=== PATIENT | female | born 1940 | race Caucasian/White ===

== ENCOUNTER 2018-05-09 16:34 | Outpatient (CLI) | payer MEDICARE | END 2018-05-09 16:35 | disposition home or self-care (01) | LOC: BICRAD 16:34 | PROVIDERS: ATTEND Internal Medicine | DX: R07.9 Chest pain, unspecified (principal); K44.9 Diaphragmatic hernia without obstruction or gangrene | CPT/HCPCS: 71046 ==

== ENCOUNTER 2019-04-01 16:54 | Observation (INO) | payer MEDICARE ==
[~2019-04-01 16:54] MED LIST: ISOVUE-370 76%-LOCM 1 ML ONE; Iopamidol 370 76% 50 ML VIAL FS ONE
[2019-04-01 17:55] LABS: #Basophils 0.1 thou/uL (0.0-0.2); #Eosinphils 0.6 thou/uL (0.0-0.7); #Lymphocytes 2.2 thou/uL (1.20-3.40); #Monocytes 0.7 thou/uL (0.11-0.59); #Neutrophils 5.5 thou/uL (1.40-6.50); %Basophils 0.8 % (0.0-1.0); %Eosinophils 6.6 % (0.0-10.0); %Lymphocytes 23.7 % (21.0-51.0); %Monocytes 7.8 % (0.0-10.0); Mean Corpuscular HGB CONC 32.6 g/dL (32.0-36.0); Mean Corpuscular Hemoglobin 29.7 pg (27.0-31.0); Mean Corpuscular Volume 91.1 fL (78.0-98.0); Mean Platelet Volume 6.8 fL (7.4-10.4); Platelet Count 271 thou/uL (130-400); RBC Distribution Width 13.8 % (11.5-14.5); Red Blood Cell (RBC) Count 4.39 mill/uL (4.20-5.40); White Blood Cell (WBC) Count 9.1 thou/uL (4.8-10.8)
[2019-04-01 18:01] LABS: PTT 25.3 SEC (22.9-36.1); Prothrombin Time 13.1 SEC (12.0-14.7)
[2019-04-01 18:15] LABS: ALT (SGPT) 18 U/L (8-55); AST (SGOT) 25 U/L (5-34); Albumin 4.3 g/dL (3.4-4.8); Alkaline Phosphatase 76 U/L (40-150); Anion Gap 12 mmol/L (10-20); BUN (Urea Nitrogen) 12 mg/dL (9.8-20.1); Bilirubin, Total 0.5 mg/dL (0.2-1.2); Calc. Creatinine Clearance 0 mL/min (70-130); Calcium 9.9 mg/dL (7.8-10.44); Carbon Dioxide 25 mmol/L (23-31); Chloride 106 mmol/L (98-107); Estimated GFR-MDRD 66; Globulin 2.6 g/dL (2.4-3.5); Glucose 97 mg/dL (83-110); Potassium 4.4 mmol/L (3.5-5.1); Protein, Total 6.9 g/dL (6.0-8.3); Sodium 139 mmol/L (136-145)
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
[2019-04-01] MEDS ORDERED: traMADol HCl 50 MG TAB PO PRN (22:34)
[2019-04-01] MEDS ORDERED: Sodium Chloride 0.9% 1,000 ML IV SCH (22:34)
[2019-04-01] MEDS ORDERED: Ondansetron ODT 4 MG TAB PO PRN (22:34)
[2019-04-01] MEDS ORDERED: Ondansetron ODT 4 MG TAB SL PRN (22:34)
[2019-04-01] MEDS ORDERED: Dextrose 50% Abboject 50 ML SYRINGE SLOW IVP PRN (22:34)
[2019-04-01] MEDS ORDERED: Ibuprofen 800 MG TAB PO PRN (22:34)
[2019-04-01] MEDS ORDERED: Dextrose 5% in Water 1,000 ML IV PRN (22:34)
[2019-04-01] MEDS ORDERED: hydrALAZINE 20 MG/ML VIAL SLOW IVP PRN (22:34)
[2019-04-01] MEDS ORDERED: Ondansetron PF 4 MG/2 ML Vial IVP PRN ×2 (22:34)
[2019-04-01] MEDS ORDERED: Cyclobenzaprine 10 MG TAB PO PRN (22:34)
[2019-04-01] MEDS: Acetaminophen 500 MG TAB PO SCH (23:01)
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
[2019-04-02 00:22] VITALS: BMI 25.9
[2019-04-02] MEDS: Acetaminophen 500 MG TAB PO SCH ×4 (05:03→23:03)
[2019-04-02 05:09] LABS: #Basophils 0.1 thou/uL (0.0-0.2); #Eosinphils 0.7 thou/uL (0.0-0.7); #Lymphocytes 1.9 thou/uL (1.20-3.40); #Monocytes 0.8 thou/uL (0.11-0.59); #Neutrophils 5.8 thou/uL (1.40-6.50); %Basophils 0.8 % (0.0-1.0); %Eosinophils 7.1 % (0.0-10.0); %Lymphocytes 20.7 % (21.0-51.0); %Monocytes 8.2 % (0.0-10.0); %Neutrophils 63.3 % (42.0-75.0); Hemoglobin 11.6 g/dL (12.0-16.0); Mean Corpuscular Hemoglobin 29.9 pg (27.0-31.0); Mean Corpuscular Volume 90.7 fL (78.0-98.0); Mean Platelet Volume 6.6 fL (7.4-10.4); Platelet Count 232 thou/uL (130-400); RBC Distribution Width 13.7 % (11.5-14.5); Red Blood Cell (RBC) Count 3.89 mill/uL (4.20-5.40); White Blood Cell (WBC) Count 9.2 thou/uL (4.8-10.8)
[2019-04-02 05:26] LABS: Anion Gap 8 mmol/L (10-20); BUN (Urea Nitrogen) 10 mg/dL (9.8-20.1); Calc. Creatinine Clearance 67 mL/min (70-130); Calcium 8.9 mg/dL (7.8-10.44); Carbon Dioxide 26 mmol/L (23-31); Chloride 108 mmol/L (98-107); Estimated GFR-MDRD 73; Glucose 117 mg/dL (83-110); Potassium 4.1 mmol/L (3.5-5.1); Sodium 138 mmol/L (136-145)
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
[2019-04-02] MEDS: Gabapentin 300 MG CAP PO SCH ×2 (08:38→21:06)
[2019-04-02] MEDS: traMADol HCl 50 MG TAB PO PRN ×2 (09:55→16:13)
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
[2019-04-02] MEDS ORDERED: traMADol HCl 50 MG TAB PO PRN (17:00)
[2019-04-02] MEDS ORDERED: traMADol HCl 50 MG TAB PO SCH (18:00)
[2019-04-02] MEDS: Ibuprofen 600 MG TAB PO SCH (21:06)
[2019-04-02] MEDS: traMADol HCl 50 MG TAB PO SCH (21:07)
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
[2019-04-03] MEDS: traMADol HCl 50 MG TAB PO SCH ×2 (04:58→10:17)
[2019-04-03] MEDS: Ibuprofen 600 MG TAB PO SCH ×2 (05:00→14:25)
[2019-04-03] MEDS: Acetaminophen 500 MG TAB PO SCH ×2 (05:00→12:34)
[2019-04-03] MEDS: Gabapentin 300 MG CAP PO SCH (08:44)
[2019-04-03 10:50] VITALS: BP 107/66; TEMP 97.4
--- NOTE | 2019-04-03 15:45 | EKG ---
Test Reason : Blood Pressure : / mmHG Vent. Rate : 080 BPM Atrial Rate : 080 BPM P-R Int : 144 ms QRS Dur : 074 ms QT Int : 400 ms P-R-T Axes : 032 -04 011 degrees QTc Int : 461 ms Normal sinus rhythm Normal ECG Confirmed by ANÍBAL MANLEY MD ([id number]), news video editor NIKKO RUBIO ([id number]) on 04/03/2019 3:45:06 PM Referred By: Confirmed By:ANÍBAL MANLEY MD
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
== END 2019-04-03 14:50 | disposition home or self-care (01) ==
LOC: ERS 16:54 → SURG A 22:33 → INTOOBSV 22:33
PROVIDERS: ADMIT Surgery; ATTEND Surgery
DX: S22.21XA Fracture of manubrium, initial encounter for closed fracture (principal); S22.32XA Fracture of one rib, left side, initial encounter for closed fracture; S22.31XA Fracture of one rib, right side, initial encounter for closed fracture; S22.081A Stable burst fracture of T11-T12 vertebra, initial encounter for closed fracture; S32.021A Stable burst fracture of second lumbar vertebra, initial encounter for closed fracture; S32.031A Stable burst fracture of third lumbar vertebra, initial encounter for closed fracture; S32.041A Stable burst fracture of fourth lumbar vertebra, initial encounter for closed fracture; K44.9 Diaphragmatic hernia without obstruction or gangrene; K43.9 Ventral hernia without obstruction or gangrene; Q61.02 Congenital multiple renal cysts; J90 Pleural effusion, not elsewhere classified; I48.91 Unspecified atrial fibrillation; J45.909 Unspecified asthma, uncomplicated; Z79.02 Long term (current) use of antithrombotics/antiplatelets; Z79.2 Long term (current) use of antibiotics; Z79.82 Long term (current) use of aspirin; Z79.899 Other long term (current) drug therapy; Z88.0 Allergy status to penicillin; Z88.8 Allergy status to other drugs, medicaments and biological substances; Z91.040 Latex allergy status; Z96.642 Presence of left artificial hip joint; V89.2XXA Person injured in unspecified motor-vehicle accident, traffic, initial encounter
CPT/HCPCS: 70450; 71045; 71260; 72125; 74177; 80048; 80053; 85025 ×2; 85610; 85730; 93005; 96360; 96361; 97139 ×2; 99285; G0378 ×4; 36415; Q9966; Q9967

== ENCOUNTER 2019-04-15 13:12 | Outpatient (CLI) | payer MEDICARE ==
--- NOTE | 2019-04-15 13:58 | RAD ---
EXAM: Two views chest PROVIDED CLINICAL HISTORY: Fracture right rib. COMPARISON: 04/02/2019 FINDINGS: There is a large hiatal hernia with distention of the stomach, and the majority of the stomach appear s to be above the level of the hemidiaphragms and overlying the left lung base. There is volume loss present at the left lung base. There is linear scar versus atelectasis in the right midlung zone . The cardiac silhouette is magnified by projection but does appear mildly enlarged. The pulmonary vasc ulature is within normal limits. Metallic device overlying the left chest on the prior study has been removed. Multilevel degenerative changes in the lower thoracic spine as well as upper lumbar spine with compre ssion fracture involving the T12 vertebral body as well as upper lumbar vertebral bodies better visualized on CT abdomen and pelvis on 04/01/2019. No obvious rib fracture is seen on this exam. IMPRESSION: 1. Large hiatal hernia with volume loss present at each lung base. 2. Compression fractures lower thoracic and upper lumbar spine also seen on CT abdomen and pelvis on 04/01/2019. 3. No definite rib fracture is visualized on this exam.
--- NOTE | 2019-04-15 15:24 | RAD ---
LEFT HIP TWO VIEWS: HISTORY: Left hip pain. FINDINGS: There are postop changes of total knee arthroplasty in good position and alignment. No fracture disl ocation or bony destruction is seen. No perihardware lucency is identified to suggest loosening. IMPRESSION: No acute process. POS: TPC
== END 2019-04-15 13:13 | disposition home or self-care (01) ==
LOC: RAD 13:12
PROVIDERS: ATTEND Physician Assistant
DX: S22.31XD Fracture of one rib, right side, subsequent encounter for fracture with routine healing (principal); M25.552 Pain in left hip; K44.9 Diaphragmatic hernia without obstruction or gangrene; S22.9XXA Fracture of bony thorax, part unspecified, initial encounter for closed fracture; S32.009A Unspecified fracture of unspecified lumbar vertebra, initial encounter for closed fracture
CPT/HCPCS: 71046

== ENCOUNTER 2019-04-22 09:16 | Outpatient (CLI) | payer MEDICARE ==
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
--- NOTE | 2019-04-22 12:48 | BD ---
DEXA BONE DENSITOMETRY: (Dual energy x-ray absorptiometry) DATE: 04/22/2019 HISTORY: 79-year old white female for age-related, post-menopausal, osteoporosis screening. weight: 152 lbs height: 65 in. age of menopause: 59 COMPARISON: None available. FINDINGS: The bone mineral density (BMD) is given in grams per square centimeter (g/cm2): LUMBAR SPINE: BMD (g/cm^2) T score Z score L1: 0.935 -0.5 1.8 L2: 1.173 1.3 3.9 L3: 1.423 3.1 5.8 L4: 0.923 -1.3 1.5 Total: 1.088 0.4 2.9 HIP: BMD (g/cm^2) T score Z score Femoral neck: 0.739 -1.0 1.2 Total: 0.845 -0.8 1.2 IMPRESSION: 1.) The mean bone mineral density of the lumbar spine is normal. However, there are extensive sclerot ic degenerative changes which elevate the BMD, and therefore could result in underestimation of fracture risk.. 2) The bone mineral density of the femoral neck is normal. Fracture risk is not increased.
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
== END 2019-04-22 09:17 | disposition home or self-care (01) ==
LOC: BICMAMMO 09:16
PROVIDERS: ATTEND Internal Medicine
DX: Z13.820 Encounter for screening for osteoporosis (principal); Z78.0 Asymptomatic menopausal state; N63.23 Unspecified lump in the left breast, lower outer quadrant; Z80.3 Family history of malignant neoplasm of breast; Z85.828 Personal history of other malignant neoplasm of skin; Z91.89 Other specified personal risk factors, not elsewhere classified; R92.1 Mammographic calcification found on diagnostic imaging of breast
CPT/HCPCS: 76642; 77066; 77080; G0279

== ENCOUNTER 2019-04-23 13:09 | Outpatient (CLI) | payer MEDICARE ==
--- NOTE | 2019-04-23 13:38 | RAD ---
EXAM: XR Lumbar Spine 2 Or 3 View PROVIDED CLINICAL HISTORY: Lumbar compression fracture. Follow-up evaluation. COMPARISON: CT abdomen and pelvis on 04/01/2019. FINDINGS: There is left convex scoliosis of the thoracolumbar spine. There are 5 nonrib-bearing lumbar-type lisandra tebral bodies. Burst fractures involving the T12, L2, L3, and L4 vertebral bodies are again seen. The degree of height loss is similar to the prior CT examination with degree of height loss much grea ter involving the T12 and L4 vertebral bodies with the degree of height loss slightly greater than approximately 75%. No new compression fracture is seen. Laminectomy defect is again seen at the L4-5 level. Facet hypertrophic changes are seen at multiple levels. There is exaggerated kyphosis of the thoracolumbar spine centered at the thoracolumbar junction. Vascular calcifications are seen in the abdominal aorta and involving the iliac arteries. Prominent c alcifications are seen in the region of the body and tail of the pancreas also seen on prior CT exam which may be related to sequela of prior pancreatitis. Metallic densities overlie the pelvis rel ated to mesh material. Postsurgical changes left hip are partially imaged related to left total hip prosthesis. 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 IMPRESSION: 1. Left convex scoliosis lumbar spine with burst fractures involving the T12, L2, L3, and L4 vertebra l bodies. The degree of height loss is similar to prior CT exam. 2. Postsurgical and degenerative changes lumbar spine.
== END 2019-04-23 13:10 | disposition home or self-care (01) ==
LOC: TBSIIMAG 13:09
PROVIDERS: ATTEND Neurological Surgery
DX: M48.56XD Collapsed vertebra, not elsewhere classified, lumbar region, subsequent encounter for fracture with routine healing (principal); M41.9 Scoliosis, unspecified; M47.816 Spondylosis without myelopathy or radiculopathy, lumbar region; S22.081A Stable burst fracture of T11-T12 vertebra, initial encounter for closed fracture; S32.021A Stable burst fracture of second lumbar vertebra, initial encounter for closed fracture; S32.032A Unstable burst fracture of third lumbar vertebra, initial encounter for closed fracture; S32.04 Fracture of fourth lumbar vertebra; Z98.890 Other specified postprocedural states
CPT/HCPCS: 72100

== ENCOUNTER 2019-09-27 09:35 | Outpatient (CLI) | payer MEDICARE ==
--- NOTE | 2019-09-27 14:42 | RAD ---
UPPER GI: Date: 09/27/2019 HISTORY: Hiatal hernia, gastroesophageal reflux disease. COMPARISON: None. FINDINGS: The patient was brought to the fluoroscopy suite. A trailer steerer radiograph of the abdomen demonstrates mild levoscoliosis of the lumbar spine with laminectomy change. Ventral hernia repair tacks are noted ove r the abdomen. Left hip arthroplasty. There are calcifications over the expected location of the pancreas. Compression deformities of T12, L2, L3, and L4. The patient was initially given gas-forming crystals. The patient tolerated this well. Next, the reg ent was given thick liquid barium. Primary and secondary peristalsis was normal over the upper 1/3 es ophagus. There is presbyesophagus with foreshortening with numerous tertiary contractions. There is p oor peristalsis of the mid and distal 1/3 esophagus. Large paraesophageal hernia with majority of the gastric volume within the thoracic cavity with organoaxial volvulus. Proximal small bowel rotation is normal. IMPRESSION: 1. Large paraesophageal hernia with a majority of the gastric contents within the left thoracic cavi ty with organoaxial volvulus without obstruction. 2. Calcifications projecting over the left upper quadrant of the abdomen, likely overlying the pancr eatic shadow and may be sequelae of chronic pancreatitis. 3. Presbyesophagus with poor contractility and numerous tertiary contractions of the distal 1/3 of e sophagus due to chronic reflux. POS: OFF
== END 2019-09-27 09:36 | disposition home or self-care (01) ==
LOC: RAD 09:35
PROVIDERS: ATTEND Internal Medicine Gastroenterology
DX: K44.9 Diaphragmatic hernia without obstruction or gangrene (principal); K21.9 Gastro-esophageal reflux disease without esophagitis; K43.9 Ventral hernia without obstruction or gangrene; Z83.71 Family history of colonic polyps; R19.09 Other intra-abdominal and pelvic swelling, mass and lump; K22.8 Other specified diseases of esophagus
CPT/HCPCS: 74246

== ENCOUNTER 2019-10-01 10:09 | Outpatient (CLI) | payer MEDICARE ==
--- NOTE | 2019-10-01 10:24 | RAD ---
EXAM: Chest PA and lateral: HISTORY: Dyspnea COMPARISON: 04/15/2019 FINDINGS: There is a large fixed diaphragmatic hernia which extends in the left lung base. There is associated left basilar atelectasis. These findings appear stable. Mild stranding in the mid left lung is stable. No acute infiltrate or vascular congestion. Degenerative spine changes with compression deformities in the upper lumbar vertebra appear stable. IMPRESSION: Large fixed diaphragmatic hernia again noted. No acute interval change apparent.
== END 2019-10-01 10:10 | disposition home or self-care (01) ==
LOC: RAD 10:09
PROVIDERS: ATTEND Internal Medicine Pulmonary Disease
DX: R06.00 Dyspnea, unspecified (principal); K44.9 Diaphragmatic hernia without obstruction or gangrene
CPT/HCPCS: 71046

== ENCOUNTER 2019-11-12 14:13 | Outpatient (CLI) | payer MEDICARE ==
--- NOTE | 2019-11-12 14:38 | RAD ---
EXAM: Chest PA and lateral: HISTORY: Dyspnea COMPARISON: 10/01/2019 FINDINGS: Heart: Normal cardiac silhouette Aorta: Atherosclerosis Pulmonary vessels: Normal Costophrenic angles: Costophrenic angles are clear. Lungs: Linear density in the right midlung and left lung base may represent subsegmental atelectasis or scar. Previously noted hiatal hernia is less evident on the current examination. Pneumothorax: No pneumothorax Osseous structures: Chronic compression fracture of the upper lumbar spine. IMPRESSION: 1. Atherosclerosis. 2. Chronic upper lumbar spine compression fractures. 3. Previous noted hiatal hernia is less evident. 4. Linear densities in the right midlung in the left lung base may represent subsegmental atelectasis or scar.
== END 2019-11-12 14:14 | disposition home or self-care (01) ==
LOC: RAD 14:13
PROVIDERS: ATTEND Internal Medicine Pulmonary Disease
DX: R06.00 Dyspnea, unspecified (principal); I70.0 Atherosclerosis of aorta; M48.56XD Collapsed vertebra, not elsewhere classified, lumbar region, subsequent encounter for fracture with routine healing; J98.4 Other disorders of lung; K44.9 Diaphragmatic hernia without obstruction or gangrene
CPT/HCPCS: 71046

== ENCOUNTER 2020-02-19 10:06 | Outpatient (CLI) | payer MEDICARE ==
--- NOTE | 2020-02-19 11:06 | MMO ---
Bilateral MAMMO Bilat Diag [facility]. CLINICAL HISTORY: Patient is 79 years old and is seen for diagnostic exam. The patient has the following family history of breast cancer: paternal aunt. The patient has a history of Skin cancer at age 71. The patient has a history of left Excisional Biopsy in November, - benign and bilateral Excisional Biopsy in - benign. VIEWS: The views performed were: bilateral craniocaudal with tomosynthesis; bilateral mediolateral oblique with tomosynthesis; and bilateral mediolateral with tomosynthesis. FILMS COMPARED: The present examination has been compared to prior imaging studies performed at [facility] on 08/31/2016, 04/22/2019 and 02/19/2020. This study has been interpreted with the assistance of computer-aided detection. MAMMOGRAM FINDINGS: The breasts are heterogeneously dense, which could obscure a lesion on mammography. Benign calcifications are noted bilaterally. The previously noted mass at 6:00 left breast is not seen on mammo or US. There are no suspicious masses, suspicious calcifications, or new areas of architectural distortion. IMPRESSION: THERE IS NO MAMMOGRAPHIC EVIDENCE OF MALIGNANCY. A ROUTINE FOLLOW-UP MAMMOGRAM IN 1 YEAR IS RECOMMENDED. THE RESULTS OF THIS EXAM WERE SENT TO THE PATIENT. ACR BI-RADS Category 2 - Benign finding MAMMOGRAPHY NOTE: 1. A negative mammogram report should not delay a biopsy if a dominant of clinically suspicious mass is present. 2. Approximately 10% to 15% of breast cancers are not detected by mammography. 3. Adenosis and dense breasts may obscure an underlying neoplasm. Reported by: ASHLI SARGENT MD Electonically Signed: [id number]
--- NOTE | 2020-02-19 11:50 | ULT ---
LEFT BREAST ULTRASOUND: Date: 02/19/2020 HISTORY: Follow-up left breast mass/hematoma from 04/22/2019. FINDINGS: Correlation is made with mammograms of today. Sonographic evaluation of the 6 o'clock position of the left breast demonstrates no abnormality. The previously noted mass is no longer seen. IMPRESSION: BI-RADS Category 2 - Benign findings. Return to annual mammographic screening.
== END 2020-02-19 10:07 | disposition home or self-care (01) ==
LOC: BICMAMMO 10:06
PROVIDERS: ATTEND Internal Medicine
DX: R92.2 Inconclusive mammogram (principal); N63.20 Unspecified lump in the left breast, unspecified quadrant
CPT/HCPCS: 76642; 77066; G0279

== ENCOUNTER 2020-11-11 12:07 | Outpatient (CLI) | payer MEDICARE | END 2020-11-11 12:08 | disposition home or self-care (01) | LOC: BICRAD 12:07 | PROVIDERS: ATTEND Internal Medicine Critical Care Medicine | DX: R06.00 Dyspnea, unspecified (principal) | CPT/HCPCS: 71046 ==

== ENCOUNTER 2021-07-08 12:15 | Outpatient (CLI) | payer MEDICARE | END 2021-07-08 12:16 | disposition home or self-care (01) | LOC: BICRAD 12:15 | PROVIDERS: ATTEND Internal Medicine | DX: M17.0 Bilateral primary osteoarthritis of knee (principal) ==

== ENCOUNTER 2021-08-23 10:55 | Emergency (ER) | payer MEDICARE ==
[2021-08-23 15:02] LABS: SARS-CoV-2 PCR by NAA DETECTED (NotDetected)
== END 2021-08-23 11:50 | disposition home or self-care (01) ==
LOC: ERS 10:55
DX: U07.1 COVID-19 (principal); J45.909 Unspecified asthma, uncomplicated; I48.91 Unspecified atrial fibrillation; Z79.82 Long term (current) use of aspirin; Z79.899 Other long term (current) drug therapy
CPT/HCPCS: U0003; U0005; 99283

== ENCOUNTER 2021-12-10 11:29 | Outpatient (CLI) | payer OTHER, MEDICARE ==
[2021-12-10 22:17] LABS: SARS-CoV-2 PCR by NAA Not Detected (NotDetected)
== END 2021-12-10 11:30 | disposition home or self-care (01) ==
LOC: LABBT 11:29
PROVIDERS: ATTEND Internal Medicine Gastroenterology
DX: R13.10 Dysphagia, unspecified (principal); Z20.822 Contact with and (suspected) exposure to COVID-19
CPT/HCPCS: U0003; U0005

== ENCOUNTER 2022-03-15 12:31 | Emergency (ER) | payer MEDICARE ==
[2022-03-15] MEDS ORDERED: Boostrix 0.5 ML (Tdap) VIAL ONE (13:23)
== END 2022-03-15 14:12 | disposition home or self-care (01) ==
LOC: ERS 12:31
DX: S91.331A Puncture wound without foreign body, right foot, initial encounter (principal); J45.909 Unspecified asthma, uncomplicated; K46.9 Unspecified abdominal hernia without obstruction or gangrene; I48.91 Unspecified atrial fibrillation; W45.0XXA Nail entering through skin, initial encounter; Z23 Encounter for immunization; Z85.828 Personal history of other malignant neoplasm of skin; Z95.5 Presence of coronary angioplasty implant and graft; Z79.82 Long term (current) use of aspirin; Z79.899 Other long term (current) drug therapy
CPT/HCPCS: 90471; 90715

== ENCOUNTER 2023-10-31 13:27 | Outpatient (CLI) | payer MEDICARE | END 2023-10-31 13:28 | disposition home or self-care (01) | LOC: BICRAD 13:27 | PROVIDERS: ATTEND Internal Medicine | DX: M25.551 Pain in right hip (principal); M53.3 Sacrococcygeal disorders, not elsewhere classified; M16.11 Unilateral primary osteoarthritis, right hip | CPT/HCPCS: 72220 ==